=== PATIENT | male | born 1990 | race Caucasian/White ===

== ENCOUNTER 2021-01-18 14:01 | Emergency (ER) | payer SELFPAY ==
[~2021-01-18] VITALS: Ht 167.6 cm; Wt 81.6 kg
[2021-01-18 14:09] VITALS: BP 127/80
--- NOTE | 2021-01-18 14:12 | NUR ---
30 Y/O MALE BIBA C/O ETOH. PER EMS PT HAD 3 TALL CANS OF BEER AT 7-ELEVEN. DENIES ANY DRUG USE. FEELING SHAKY AND NAUSEOUS. EMS GAVE 4MG ZOFRAN ODT. ABD SOFT NON TENDER. SKIN WARM AND DRY. MEDHX: DENIES NKA
--- NOTE | 2021-01-18 14:12 | NUR ---
TOÑO PASTRANA EXAMINING PT
--- NOTE | 2021-01-18 14:14 | NUR ---
LAB AT BEDSIDE
[2021-01-18 14:38] LABS: BASOPHILS % (AUTO) 1.2 % (0.0-2.0); EOSINOPHILS % (AUTO) 0.5 % (0.0-4.0); HEMATOCRIT 26.8 % (36-52); HEMOGLOBIN 8.7 g/dL (12.0-18.0); LYMPHOCYTES # (AUTO) 1.3 K/uL (2.0-11.5); LYMPHOCYTES % (AUTO) 40.9 % (20.5-51.1); MEAN CORPUSCULAR HEMOGLOBIN 23 pg (27-31); MEAN CORPUSCULAR HGB CONC 33 g/dL (33-37); MEAN CORPUSCULAR VOLUME 71.6 fL (80-94); MONOCYTES # (AUTO) 0.3 K/uL (0.8-1.0); MONOCYTES % (AUTO) 8.5 % (1.7-9.3); NEUTROPHILS # (AUTO) 1.5 K/uL (1.8-7.7); NEUTROPHILS % (AUTO) 48.9 % (42.2-75.2); PLATELET COUNT (AUTO) 148 K/uL (140-450); RED BLOOD CELL COUNT(AUTO) 3.74 MIL/uL (4.20-6.10); RED CELL DISTRIBUTION WIDTH 18.6 % (11.6-13.7); WHITE BLOOD COUNT (AUTO) 3.1 K/uL (4.8-10.8)
[2021-01-18 14:56] LABS: ALBUMIN 3.8 g/dL (3.4-5.0); ANION GAP 16.5 (8-16); CARBON DIOXIDE 23.9 mmol/L (21-32); CREATININE 0.5 mg/dL (0.6-1.3); POTASSIUM 3.4 mmol/L (3.5-5.1); TOTAL BILIRUBIN 0.4 mg/dL (0.0-1.0)
[2021-01-18] MEDS ORDERED: NACL 0.9% 1,000 ML IV ONE (15:05)
[2021-01-18 15:36] LABS: PROTHROMBIN TIME 10.4 secs (10.8-13.4)
--- NOTE | 2021-01-18 16:00 | NUR ---
Patient pulled out iv. catheter intact and site benign. Applied folded 4x4 gauze and tape to stop bleeding.
[2021-01-18 16:54] LABS: BARBITURATE, URINE NEGATIVE ng/ml (NEG <=200); BENZODIAZEPINE, URINE NEGATIVE ng/mL (NEG <=200); CANNABINOID, URINE NEGATIVE ng/mL (NEG <=50); COCAINE, URINE NEGATIVE ng/mL (NEG <=300); OPIATE, URINE NEGATIVE ng/mL (NEG <=2000); PHENCYCLIDINE SCREEN,URINE NEGATIVE ng/mL (NEG <=25)
--- NOTE | 2021-01-18 17:00 | NUR ---
Pt pulled out IV, catheter intact and site benign. Applied folded 4x4 gauze and tape to stop bleeding.
[2021-01-18] MEDS ORDERED: FERR325E14 PO (17:09)
[2021-01-18 17:15] VITALS: BP 112/68
--- NOTE | 2021-01-18 17:15 | NUR ---
Patient discharged with v/s stable. Written and verbal after care instructions given and explained. Patient alert, oriented and verbalized understanding of instructions. Ambulatory with steady gait. All questions addressed prior to discharge. ID band removed. Patient advised to follow up with PMD. Rx of FERROUS SULFATE given. Patient educated on indication of medication including possible reaction and side effects. Opportunity to ask questions provided and answered.
== END 2021-01-18 17:15 | disposition home or self-care (01) ==
LOC: MED 14:01
DX: F10.129 Alcohol abuse with intoxication, unspecified (principal); D64.9 Anemia, unspecified; R94.5 Abnormal results of liver function studies; R11.2 Nausea with vomiting, unspecified; R10.9 Unspecified abdominal pain; Z79.899 Other long term (current) drug therapy
CPT/HCPCS: 36415; 80053; 80305; 81002; 82728; 83540; 85025; 85610; 85730; 96360; 96361; 99283; G0482; J7030